=== PATIENT | female | born 1995 | race Caucasian/White ===

== ENCOUNTER 2018-10-16 16:26 | Inpatient (IN) | payer BC ==
[2018-10-16] MEDS ORDERED: Ondansetron 4 MG/2 ML SDV IV PRN (17:27)
[2018-10-16] MEDS ORDERED: Carboprost Tromethamine 250 MCG/1 ML Amp IM PRN (17:27)
[2018-10-16] MEDS ORDERED: Tranexamic Acid 1,000 MG in Sodium Chloride 0.9% 100 ML IV PRN (17:27)
[2018-10-16] MEDS ORDERED: Acetaminophen 325 MG Tab PO PRN (17:27)
[2018-10-16] MEDS ORDERED: Methylergonovine 0.2 MG/1 ML Amp IM PRN (17:27)
[2018-10-16] MEDS ORDERED: Misoprostol 400 MCG (4 X 100 MCG TAB) RECTAL PRN (17:27)
[2018-10-16] MEDS ORDERED: Sodium Chloride 0.9% 10 ML Syringe FLUSH PRN (17:27)
[2018-10-16] MEDS ORDERED: Lactated Ringers 500 ML IV ONE (17:27)
[2018-10-16] MEDS ORDERED: Lidocaine 1% 30 ML SDV INJECT PRN (17:27)
[2018-10-16] MEDS ORDERED: Oxytocin/Normal Saline 30 UNIT/500 ML BAG IV SCH (17:30)
[2018-10-16] MEDS: Lactated Ringers 1,000 ML IV SCH ×2 (17:30→23:23)
[2018-10-16] MEDS ORDERED: Nalbuphine 10 MG/1 ML Vial IV ONE ×3 (17:59→21:00)
[2018-10-16] MEDS ORDERED: Nalbuphine 10 MG/1 ML Vial IM ONE ×2 (17:59→22:24)
[2018-10-16] MEDS ORDERED: fentaNYL 100 MCG/2 ML SDV ONE (23:23)
[2018-10-16] MEDS ORDERED: EPINEPHrine 1 MG/ML SDV ONE (23:23)
[2018-10-16] MEDS ORDERED: Sodium Bicarbonate 4.2% 2.5 MEQ/5 ML SDV ONE (23:24)
--- NOTE | 2018-10-16 23:48 | PCM.SN ---
- Free Text/Narrative Note: Intrathecal. Sitting position, sterile prep and drape. 1% lidocaine w bicarb for skinwheal to L3 L4 interspace. Introducer , 24 ga pencan x 1, pos csf, neg heme. neg parasthesia. 0.1 ml pf 1:1000 epi, 20 mcg pf sufenta, 30 mcg pf fenanyl, 0.4 ml pf NS and 6 mg 0.75% pf bupivacaine injected after CSF aspiration. Pt to L lateral position. Procedure time 2320 to 2350
[2018-10-17] MEDS ORDERED: Calcium Carbonate 500 MG Tab.Chew PO PRN (01:34)
--- NOTE | 2018-10-17 02:00 | HP ---
CHIEF COMPLAINT: Increased intensity and frequency of contractions. SUBJECTIVE: Sonia is a 23-year-old, G1, P0-0-0-0 at 39 weeks and 5 days gestation based on 11-week 2-day ultrasound. The patient presented with contractions every 2 minutes, starting about three hours prior to arrival. She has had some mucousy leakage. Her pain is rated at a 3/10 to 4/10. Having movement. Denies any problem with bowel or bladder function, bleeding, spotting, visual changes, or headaches. PAST MEDICAL HISTORY: 1. History of chickenpox. 2. Blood type A positive. 3. Rubella immune. 4. Group B strep negative. PAST SURGICAL HISTORY: None. FAMILY HISTORY: Paternal side of the family has history of kidney disease. SOCIAL HISTORY: Sonia is . She lives about 5 miles out of [place]. She works full-time at [employer]. 's name is Joseph, he works in construction. CURRENT MEDICATIONS: vitamin. ALLERGIES: Penicillin. The patient does not remember her allergic response because she was a child. REVIEW OF SYSTEMS: HEENT: No headaches or dizziness. No change in vision or hearing. Pulmonary: No difficulty breathing. Cardiovascular: No chest pain. No palpitations. No lower extremity edema. Gastrointestinal: She denies nausea or vomiting. OBJECTIVE: Vital signs: Blood pressure of 131/78, temperature of 97.9, and pulse of 100. FHR: Category 1, 140's-150's. Amol every 2-3 minutes. General: She is alert and cooperative, in no acute distress. HEENT: Grossly normal. Pulmonary: Lungs are clear to auscultation bilaterally. Cardiovascular: Regular rate and rhythm. No murmurs are noted. Abdomen: Bowel sounds are positive. No pain to palpation. Gravid uterus is noted. Extremities: No calf pain or tenderness to palpation. No swelling in the ankles bilaterally. Cervix: Cervical check done today by Nick Pastor, cervix is 3.5 cm dilated , 0 station, 80% effaced. Artificial rupture of membranes performed, clear amniotic fluid. ASSESSMENT: 1. 1, para 0-0-0-0 at 39 weeks and 5 days gestation. 2. Blood type A positive. 3. Rubella immune. 4. Group B strep negative. PLAN: Admission to Labor and Delivery. Planning a spontaneous vaginal delivery. Patient does not want pain medication. The patient was seen by myself and Dr. Dougherty. Assessment and plan are under the advisement of Dr. Dougherty. Nick Dayjuan franciscoki, MS-III [facility] /[id number] I have seen and examined this patient. I have reviewed and edited the above notes and agree with the evaluation and treatment plan as noted. Shani Dougherty MD [facility]PITALAlecia
[2018-10-17] MEDS ORDERED: Oxytocin/Normal Saline 30 UNIT/500 ML BAG IV SCH (02:45)
[2018-10-17] MEDS: Lactated Ringers 1,000 ML IV SCH (03:53)
[2018-10-17] MEDS ORDERED: Oxytocin 10 Units/1 ML SDV IM PRN (05:24)
[2018-10-17] MEDS ORDERED: Benzocaine/Menthol 20%-0.5% Spray 56 GM Canister TOP PRN (05:24)
[2018-10-17] MEDS ORDERED: Misoprostol 400 MCG (4 X 100 MCG TAB) RECTAL PRN (05:24)
[2018-10-17] MEDS ORDERED: Tranexamic Acid 1,000 MG in Sodium Chloride 0.9% 100 ML IV PRN (05:24)
[2018-10-17] MEDS ORDERED: Simethicone 80 MG Tab.Chew PO PRN (05:24)
[2018-10-17] MEDS ORDERED: Carboprost Tromethamine 250 MCG/1 ML Amp IM PRN (05:24)
[2018-10-17] MEDS ORDERED: Zolpidem 5 MG Tab PO PRN (05:24)
[2018-10-17] MEDS ORDERED: Sodium Chloride 0.9% 10 ML Syringe FLUSH PRN (05:24)
[2018-10-17] MEDS ORDERED: Acetaminophen 325 MG Tab PO PRN (05:24)
[2018-10-17] MEDS: Prenatal Multivitamin with Calcium/Folic Acid/Iron Tab PO SCH (09:28)
[2018-10-17] MEDS: Docusate Sodium 100 MG Cap PO PRN ×2 (09:28→20:49)
[2018-10-17] MEDS: Ibuprofen 800 MG Tab PO PRN ×2 (09:29→20:47)
--- NOTE | 2018-10-18 04:37 | DEL ---
DATE: 10/17/2018 PREPROCEDURE DIAGNOSES: 1. 39 weeks and 5 days gestation. 2. G1, P0-0-0-0. 3. GBS negative, rubella immune, blood type A positive. POSTPROCEDURE DIAGNOSES: 1. 39 weeks and 6 days gestation. 2. G1, P1-0-0-1. 3. GBS negative, rubella immune, blood type A positive. 4. Delivery of viable male with scores of 9 and 9. BRIEF HISTORY: A 23-year-old patient with the above-listed diagnoses, presented to Labor and Delivery with contractions every 2-3 min. On admission, at around 1730 hours, the patient was 3+ cm dilated, 0 station and 80% effaced. At that time, her membranes were artificially ruptured. By 2030 hours, she was 8 cm. The patient started having discomfort and received Nubain 10 mg IV 2 times. An intrathecal was placed at 2330 hours. After intrathecal, the patient was allowed to labor down. Eventually, she delivered via spontaneous vaginal delivery with vacuum assist at 0446 hours. PROCEDURE IN DETAIL: The patient delivered a viable male ROP position. Baby's nose and mouth were bulb suctioned and baby was dried, stimulated, and placed on mother's abdomen. The 3-vessel umbilical cord was doubly clamped and cut by dad after delay. Placenta then delivered by gentle cord traction and concomitant uterine massage, inspected and intact. Two labial lacerations were repaired, one at about 3 o'clock, the other at about the 9 o' clock position. A small periurethral tear not repaired. Terminal meconium present. COMPLICATIONS: Lacerations as above. Vacuum assistance. FINDINGS: Viable male infant, scores of 9 and 9. Weighed 3355g. ESTIMATED BLOOD LOSS: 250 mL. DISPOSITION: Mother and baby to stay in the delivery room at this time. The patient was seen by myself and Dr. Dougherty. Assessment and procedure note under advisement of Dr. Dougherty. Nick Pastor MS-III [facility] /[id number] [place]
[2018-10-18] MEDS: Docusate Sodium 100 MG Cap PO PRN ×2 (09:31→20:54)
[2018-10-18] MEDS: Prenatal Multivitamin with Calcium/Folic Acid/Iron Tab PO SCH (09:31)
--- NOTE | 2018-10-18 12:01 | PN ---
DATE: 10/18/2018 SUBJECTIVE: Sonia is day #1 from spontaneous vaginal delivery, with vacuum assistance, of a term male at 39 weeks and 6 days. No complaints overnight. Tolerating activity, eating, and urinating. Passed flatus, but no bowel movement yet. Formula feeding. She does have a tender spot when she pushes on it, where the intrathecal was injected. Minimal bleeding. OBJECTIVE: Vital signs: Temp 97.4, pulse 86, blood pressure 111/61, respiratory rate 18, and oxygen sat 99%. General: The patient is alert, cooperative, and in no acute distress. HEENT: Grossly normal. Heart: Regular rate and rhythm. No murmurs. Lungs: Clear to auscultation bilaterally. Abdomen: Uterus is palpated at the umbilicus. Soft abdomen. Nontender and nondistended. Extremities: No edema or erythema. Calves nontender to palpation. Neurologic: Range of motion and strength in extremities are unremarkable. ASSESSMENT: Sonia is day #1 from spontaneous vaginal delivery of a term male infant at 39 weeks and 6 days. PLAN: 1. Continue routine cares. 2. Formula feeding. 3. Planning for discharge tomorrow. Nick Pastor, MS-III The patient was seen today by myself and Dr. Dougherty. The assessment and plan are under advisement of Dr. Dougherty. [facility] /[id number] MTDD
[2018-10-18] MEDS: Ibuprofen 800 MG Tab PO PRN (20:56)
--- NOTE | 2018-10-18 21:01 | PCM.DEL ---
L & D Note - General Info Date of Service: 10/17/18 (vacuum notation) - Delivery Note Provider: Shani Dougherty Vacuum Extractor Progress Note - Alternative Labor Strategies Considered Alternative Labor Strategies Considered:: Reports: Yes Strategies Considered:: Reports: Contraction Intensity Adequate, Position Changes Used to Facilitate Rotation & Descent, Empty Bladder, Rest Indications Considered:: Reports: Yes Indications:: Reports: Prolonged 2nd Stage, Shortening of 2nd Stage for Maternal Benefit Time Out:: Reports: Yes - Patient Prepared Patient Prepared:: Reports: Yes Informed Consent:: Reports: Verbal Risks: Reports: Yes Anesthesia/Analgesia Adequate:: Reports: Yes (intrathecal working well) Comments:: intrathecal working well. - Probability of Success High Probability of Success:: Reports: Yes Weight Estimated:: Reports: AGA Patient Diabetic:: Reports: No Pelvis Adequate:: Reports: Yes Position:: ROP Asynclitic:: Reports: No Station:: +2 to +3/then with cxns - Application Time Maximum Application Time & Number of Pop-Offs Predetermined:: Reports: Yes Vacuum Extraction: Successful Comments:: both low profile and Kiwi hand helds used intermittently, suction slightly less than optimal due to large amount of hair noted, and caput/moulding. vacuum was successful without complications. mother tolerated well and was effective at pushing cooperatively. no obvious complications or adverse effects. did not go over limits of pressure, time or pop-offs hmb - Exit Strategy Exit strategy available:: Reports: Yes and resuscitation teams readily available:: Reports: Yes Consult as indicated:: not necessary/indicated Comments:: Nick Pastor MS3 and Shani Dougherty MD - General Info Date of Service: 10/17/18 - Patient Data Vitals - Most Recent: Last Vital Signs Temp 98.3 F 10/18/18 08:00 Pulse 91 10/18/18 08:00 Resp 16 10/18/18 08:00 BP 103/60 10/18/18 08:00 Pulse Ox 99 10/18/18 08:00 Weight - Most Recent: 174 lb Lab Results Last 24 Hours: Laboratory Results - last 24 hr 10/18/18 Range/Units 05:25 WBC 18.4 H (5.0-10.0) 10^3/uL RBC 3.48 L (4.2-5.4) 10^6/uL Hgb 11.6 L (12.0-16.0) g/dL Hct 34.4 L (37.0-47.0) % MCV 98.9 (80-100) fL MCH 33.3 (27.0-34.0) pg MCHC 33.7 (33.0-35.0) g/dL Plt Count 179 (150-450) 10^3/uL Med Orders - Current: Current Medications Acetaminophen (Tylenol) 650 mg PO Q6H PRN PRN Reason: mild pain or fever Benzocaine/Menthol (Dermoplast Pain Relief [place]) 0 gm TOP Q4H PRN PRN Reason: Perineal comfort measures Last Admin: 10/17/18 20:51 Dose: 2 sprays Calcium Carbonate/Glycine (Tums) 1,000 mg PO Q2H PRN PRN Reason: acid reflux Last Admin: 10/17/18 03:50 Dose: 1,000 mg Carboprost Tromethamine (Hemabate Ds) 250 mcg IM ASDIRECTED PRN PRN Reason: Excessive vaginal bleeding Docusate Sodium (Colace) 100 mg PO BID PRN PRN Reason: Constipation Last Admin: 10/18/18 09:31 Dose: 100 mg Oxytocin/Sodium Chloride (Pitocin In Ns 30 Unit/500 Ml) 30 unit in 500 mls @ 2 mls/hr IV TITRATE CARLITOS; Protocol Last Titration: 10/17/18 07:17 Dose: Infused Tranexamic Acid 1,000 mg/ (Sodium Chloride) 110 mls @ 660 mls/hr IV ONETIME PRN PRN Reason: Bleeding Ibuprofen (Motrin) 800 mg PO Q8H PRN PRN Reason: Mild Pain or Fever Last Admin: 10/17/18 20:47 Dose: 800 mg Misoprostol (Cytotec) 800 mcg RECTAL ONETIME PRN PRN Reason: Hemorrhage Oxytocin (Pitocin) 10 unit IM ONETIME PRN PRN Reason: Bleeding Prenat Multivit/[place]/Iron/Folic Ac ( Plus Iron) 1 each PO DAILY CARLITOS Last Admin: 10/18/18 09:31 Dose: 1 each Simethicone (Simethicone) 80 mg PO Q4H PRN PRN Reason: Gas Sodium Chloride (Saline Flush) 10 ml FLUSH ASDIRECTED PRN PRN Reason: Keep Vein Open Zolpidem Tartrate (Ambien) 5 mg PO BEDTIME PRN PRN Reason: Insomnia Discontinued Medications Acetaminophen (Tylenol) 650 mg PO Q4H PRN PRN Reason: Pain (Mild 1-3) and fever Carboprost Tromethamine (Hemabate Ds) 250 mcg IM ASDIRECTED PRN PRN Reason: HEMORRHAGE Epinephrine HCl (Adrenalin) Confirm Administered Dose 1 mg .ROUTE .STK-MED ONE Stop: 10/16/18 23:24 Last Admin: 10/16/18 23:32 Dose: Not Given Fentanyl (Sublimaze) Confirm Administered Dose 100 mcg .ROUTE .STK-MED ONE Stop: 10/16/18 23:24 Last Admin: 10/16/18 23:32 Dose: Not Given Lactated Ringer's (Ringers, Lactated) 500 mls @ 999 mls/hr IV .BOLUS ONE Stop: 10/16/18 17:57 Last Admin: 10/17/18 13:05 Dose: Not Given Lactated Ringer's (Ringers, Lactated) 1,000 mls @ 125 mls/hr IV ASDIRECTED CARLITOS Last Admin: 10/17/18 03:53 Dose: 125 mls/hr Oxytocin/Sodium Chloride (Pitocin In Ns 30 Unit/500 Ml) 30 unit in 500 mls @ 2 mls/hr IV TITRATE CARLITOS; Protocol Tranexamic Acid 1,000 mg/ (Sodium Chloride) 110 mls @ 660 mls/hr IV ONETIME PRN PRN Reason: Bleeding Lidocaine HCl (Xylocaine-Mpf 1%) 30 ml INJECT ASDIRECTED PRN PRN Reason: Perineal Repair Methylergonovine Maleate (Methergine) 0.2 mg IM ASDIRECTED PRN PRN Reason: Hemorrhage Misoprostol (Cytotec) 800 mcg RECTAL ASDIRECTED PRN PRN Reason: Hemorrhage Nalbuphine HCl (Nubain) 20 mg IV ONETIME ONE Stop: 10/16/18 18:00 Last Admin: 10/16/18 21:31 Dose: Not Given Nalbuphine HCl (Nubain) 10 mg IV ONETIME ONE Stop: 10/16/18 18:02 Last Admin: 10/16/18 20:52 Dose: 10 mg Nalbuphine HCl (Nubain) 20 mg IM ONETIME ONE Stop: 10/16/18 18:00 Last Admin: 10/16/18 21:31 Dose: Not Given Nalbuphine HCl (Nubain) 10 mg IV ONETIME ONE Stop: 10/16/18 21:01 Last Admin: 10/16/18 21:02 Dose: Not Given Nalbuphine HCl (Nubain) 10 mg IM ONETIME ONE Stop: 10/16/18 22:25 Last Admin: 10/16/18 22:33 Dose: 10 mg Ondansetron HCl (Zofran) 4 mg IV Q4H PRN PRN Reason: Nausea/Vomiting Last Admin: 10/16/18 23:18 Dose: 4 mg Sodium Bicarbonate (Sodium Bicarbonate 4.2%) Confirm Administered Dose 0.5 meq .ROUTE .STK-MED ONE Stop: 10/16/18 23:25 Last Admin: 10/16/18 23:32 Dose: Not Given Sodium Chloride (Saline Flush) 10 ml FLUSH ASDIRECTED PRN PRN Reason: Keep Vein Open Sufentanil Citrate (Sufenta) Confirm Administered Dose 50 mcg .ROUTE .STK-MED ONE Stop: 10/16/18 23:25 Last Admin: 10/16/18 23:32 Dose: Not Given - Problem List & Annotations (1) Term delivered SNOMED Code(s): 15552716, 271252923 Code(s): O80 - ENCOUNTER FOR FULL-TERM UNCOMPLICATED DELIVERY Status: Acute Current Visit: Yes (2) Vacuum extraction, delivered, current hospitalization SNOMED Code(s): 900354316 Code(s): O66.5 - ATTEMPTED APPLICATION OF VACUUM EXTRACTOR AND FORCEPS Status: Acute Current Visit: Yes - Problem List Review Problem List Initiated/Reviewed/Updated: Yes
[2018-10-19] MEDS: Docusate Sodium 100 MG Cap PO PRN (08:08)
[2018-10-19] MEDS: Prenatal Multivitamin with Calcium/Folic Acid/Iron Tab PO SCH (08:08)
[2018-10-19] MEDS ORDERED: Sodium Bicarbonate 4.2% 2.5 MEQ/5 ML SDV ONE (08:58)
[2018-10-19] MEDS ORDERED: fentaNYL 100 MCG/2 ML SDV ITHECAL ONE (08:58)
--- NOTE | 2018-10-20 05:00 | DISCH ---
ADMITTING DIAGNOSES: 1. A 39 weeks and 5 days gestation based on 11 week ultrasound. 2. G1, P-0-0-0-0. 3. Blood type A-positive. 4. Rubella immune. 5. Group B strep negative. DISCHARGE DIAGNOSES: 1. A 39 and 6 weeks gestation via 11 week ultrasound. 2. 1, now para 1-0-0-1. 3. Delivered term male infant via spontaneous vaginal delivery with vacuum assist. 4. Blood type A-positive. 5. Rubella immune. 6. Group B strep negative. 7. Two vaginal tears at 3 o'clock and 9 o'clock position, repaired. BRIEF HISTORY: A 23-year-old with the above listed diagnoses presented with contractions every 2 minutes starting a few hours prior to her arrival. She had some mucousy leakage. At the time of admission, she was dilated to 3+ and her membranes were artificially ruptured. We did end up giving some Pitocin. A total of 20 mg of Nubain was given. Intrathecal was given. Protracted active phase of labor. Normal spontaneous vaginal delivery with vacuum assistance. Placenta intact. Minimal bleeding. EBL 250. Delivered a term male infant weighing 3355 g with scores of 9 and 9. HOSPITAL COURSE: Good. Bleeding has decreased significantly. She passed 1 small quarter-sized clot. She is having bowel movements, urinating, and tolerating diet. DISCHARGE CONDITION: Good. PHYSICAL EXAMINATION: Vital Signs: Temp 97.4, pulse 84, blood pressure 121/72, respiratory rate 18, O2 sat 99%. Heart: Regular rate and rhythm without murmur. Lungs: Clear bilaterally. Abdomen: Soft and nontender. Fundus is firm and 2 cm below the umbilicus. Extremities: No edema, erythema, or tenderness. LAB DATA: Admission hemoglobin was 12.9, day after delivery hemoglobin was 11.6. Platelets on admission 186, day after delivery 179. Blood loss at delivery was insignificant; and therefore, CBC was not performed. DISCHARGE MEDICATIONS: None prescribed. The patient can continue her vitamins and Tylenol as needed. DISPOSITION: Home with family. FOLLOWUP: The patient is advised to have a [address] Dougherty. Baby has clinic appt on 10/26/18 The patient was seen by myself and Dr. Dougherty. Assessment and plan are under advisement of Dr. Dougherty. Nick Serranoible, MS-III [facility] /[id number] Addendum: I agree with above notes and plan. I have seen and evaluated this patient. teresa MCCALL
== END 2018-10-19 11:30 | disposition home or self-care (01) | DRG 560 ==
LOC: DL.OBCHECK 16:26 → DL.OB 17:18 → OBSVTOIN 10-17 04:46
PROVIDERS: ADMIT Family Medicine; ATTEND Family Medicine
PROC: 10D07Z6 Extraction of Products of Conception, Vacuum, Via Natural or Artificial Opening (ICD-10-PCS; principal; 2018-10-17)
PROC: 10907ZC Drainage of Amniotic Fluid, Therapeutic from Products of Conception, Via Natural or Artificial Opening (ICD-10-PCS; 2018-10-17)
PROC: 0HQ9XZZ Repair Perineum Skin, External Approach (ICD-10-PCS; 2018-10-17)
PROC: 3E0R3BZ Introduction of Anesthetic Agent into Spinal Canal, Percutaneous Approach (ICD-10-PCS; 2018-10-17)
DX: O77.0 Labor and delivery complicated by meconium in amniotic fluid (principal); O70.0 First degree perineal laceration during delivery; Z3A.39 39 weeks gestation of pregnancy; Z37.0 Single live birth
CPT/HCPCS: 01967; 36415; 59409; 85027; A9270-GY; J2300; J2405; J2590; J3010; J7120

== ENCOUNTER 2021-12-04 05:45 | Inpatient (IN) | payer BC, OTHER, SELFPAY ==
[2021-12-04] MEDS ORDERED: Lactated Ringers 1,000 ML IV ONE (06:04)
[2021-12-04] MEDS ORDERED: Lidocaine 1% 30 ML SDV INJECT PRN (06:04)
[2021-12-04] MEDS ORDERED: Acetaminophen 325 MG Tab PO PRN ×2 (06:04→08:44)
[2021-12-04] MEDS ORDERED: Tranexamic Acid 1,000 MG in Sodium Chloride 0.9% 100 ML IV PRN (06:04)
[2021-12-04] MEDS ORDERED: Ondansetron 4 MG/2 ML SDV IVPUSH PRN (06:04)
[2021-12-04] MEDS ORDERED: Sodium Chloride 0.9% 10 ML Syringe FLUSH PRN (06:04)
[2021-12-04] MEDS ORDERED: Misoprostol 400 MCG (4 X 100 MCG TAB) RECTAL PRN (06:04)
[2021-12-04] MEDS ORDERED: Carboprost Tromethamine 250 MCG/1 ML Amp IM PRN (06:04)
[2021-12-04] MEDS ORDERED: Methylergonovine 0.2 MG/1 ML Amp IM PRN (06:04)
[2021-12-04] MEDS ORDERED: Lactated Ringers 1,000 ML IV SCH (06:15)
[2021-12-04] MEDS ORDERED: Oxytocin/Normal Saline 30 UNIT/500 ML BAG IV SCH (06:15)
[2021-12-04] MEDS ORDERED: Benzocaine/Menthol 20%-0.5% Spray 78 GM Cannister TOP PRN (08:44)
[2021-12-04] MEDS ORDERED: Simethicone 80 MG Tab.Chew PO PRN (08:44)
[2021-12-04] MEDS ORDERED: Oxytocin 10 Units/1 ML SDV IM PRN (08:44)
[2021-12-04] MEDS: Ibuprofen 800 MG Tab PO PRN ×2 (10:50→19:57)
[2021-12-04] MEDS: Prenatal Multivitamin with Calcium/Folic Acid/Iron Tab PO SCH (10:50)
[2021-12-04] MEDS: Docusate Sodium 100 MG Cap PO PRN ×2 (10:50→19:56)
[2021-12-05] MEDS: Docusate Sodium 100 MG Cap PO PRN (08:34)
[2021-12-05] MEDS: Prenatal Multivitamin with Calcium/Folic Acid/Iron Tab PO SCH (08:34)
[2021-12-05] MEDS ORDERED: Measles, Mumps & Rubella Vaccine 0.5 ML SDV SUBCUT ONE (09:00)
== END 2021-12-05 11:45 | disposition home or self-care (01) | DRG 560 ==
LOC: DL.OBCHECK 05:45 → INTOOBSV 06:06 → OBSVTOIN 06:06 → DL.OB 06:06 → UNDOADMOB 06:06 → DL.OB 07:55 → OBSVTOIN 07:55
PROVIDERS: ADMIT Family Medicine; ATTEND Family Medicine
PROC: 10E0XZZ Delivery of Products of Conception, External Approach (ICD-10-PCS; principal; 2021-12-04)
PROC: 10907ZC Drainage of Amniotic Fluid, Therapeutic from Products of Conception, Via Natural or Artificial Opening (ICD-10-PCS; 2021-12-04)
PROC: 3E0234Z Introduction of Serum, Toxoid and Vaccine into Muscle, Percutaneous Approach (ICD-10-PCS; 2021-12-04)
DX: O48.0 Post-term pregnancy (principal); Z3A.40 40 weeks gestation of pregnancy; Z37.0 Single live birth; Z88.0 Allergy status to penicillin; O69.81X0 Labor and delivery complicated by cord around neck, without compression, not applicable or unspecified; Z20.822 Contact with and (suspected) exposure to COVID-19; Z23 Encounter for immunization
CPT/HCPCS: 36415; 59409; 85027; 90471; 90707; A9270-GY; J2590; J7120; U0002